=== PATIENT | female | born 1945 | race Caucasian/White ===

== ENCOUNTER → 2016-10-09 | Outpatient (CLI) | payer MEDICARE, MEDICAID ==
[2016-10-09 14:11] LABS: MICRO ALBUMIN RANDOM URINE RAW 6.2 MG/L (0.0-30.0)
[2016-10-09 14:17] LABS: HDL CHOLESTEROL 48.2 MG/DL (40.0-60.0)
[2016-10-09 14:24] LABS: FREE T3 3.35 PG/ML (2.18-3.98); FREE T4 0.64 NG/DL (0.76-1.46)
[2016-10-09 16:41] LABS: HEMOGLOBIN A1a 0.9 %; HEMOGLOBIN A1b 0.8 %; HEMOGLOBIN Ao 85.7 %; HEMOGLOBIN F 1.1 %; HEMOGLOBIN P3 3.5 %
== END ==
LOC: CLAB 13:18
PROVIDERS: ATTEND Otolaryngology
DX: E07.9 Disorder of thyroid, unspecified (principal); E78.5 Hyperlipidemia, unspecified; E11.9 Type 2 diabetes mellitus without complications
CPT/HCPCS: 36415; 80061; 82043; 83036; 84439; 84443; 84481

== ENCOUNTER → 2017-04-16 | Outpatient (CLI) | payer MEDICARE, MEDICAID | LOC: CLAB 11:22 | PROVIDERS: ATTEND Psychiatry & Neurology Neurology | DX: M31.6 Other giant cell arteritis (principal); R79.82 Elevated C-reactive protein (CRP); A53.0 Latent syphilis, unspecified as early or late | CPT/HCPCS: 36415; 85652; 86038; 86140 ==

== ENCOUNTER → 2017-05-29 | Outpatient (CLI) | payer MEDICARE, MEDICAID | LOC: CLAB 12:22 | PROVIDERS: ATTEND Psychiatry & Neurology Neurology | DX: R51 Headache (principal); M31.6 Other giant cell arteritis; R76.9 Abnormal immunological finding in serum, unspecified | CPT/HCPCS: 36415; 85652; 86140 ==

== ENCOUNTER → 2018-01-01 | Outpatient (CLI) | payer MEDICARE, MEDICAID ==
[2018-01-01 12:29] LABS: HEMATOCRIT 38.5 % (35.0-46.0); HEMOGLOBIN 13.2 GM/DL (11.6-15.3); MEAN CORPUSCULAR HEMOGLOBIN 32.9 PG (27.0-34.0); MEAN CORPUSCULAR HGB CONC 34.3 % (32.0-36.0); PLATELET COUNT 233 TH/MM3 (150-450); RED BLOOD COUNT 4.01 MIL/MM3 (4.00-5.30)
[2018-01-01 12:51] LABS: ALBUMIN 3.9 GM/DL (3.4-5.0); AST (GOT) 17 U/L (15-37); BICARBONATE 31.1 MEQ/L (21.0-32.0); BLOOD UREA NITROGEN 14 MG/DL (7-18); CALCIUM 9.8 MG/DL (8.5-10.1); CHLORIDE 110 MEQ/L (98-107); CREATININE 1.36 MG/DL (0.50-1.00); GLOMERULAR FILTRATION RATE 38 ML/MIN (>89); GLUCOSE,FASTING 90 MG/DL (74-99); SODIUM (NA) 145 MEQ/L (136-145)
[2018-01-01 12:52] LABS: ALT (GPT) 22 U/L (10-53); CHOLESTEROL 134 MG/DL (120-200)
[2018-01-01 12:54] LABS: ALKALINE PHOSPHATASE 59 U/L (45-117); CHOLESTEROL/ HDL RATIO 1.85 RATIO; HDL CHOLESTEROL 72.1 MG/DL (40.0-60.0); LDL CHOLESTEROL 41 MG/DL (0-99); TOTAL BILIRUBIN ADULT 0.6 MG/DL (0.2-1.0); TOTAL PROTEIN 6.8 GM/DL (6.4-8.2); TRIGLYCERIDES 104 MG/DL (42-150)
[2018-01-01 12:58] LABS: WESTERGREN SEDIMENTATION RATE 7 mm/hr (0-30)
[2018-01-01 13:02] LABS: FREE T3 3.74 PG/ML (2.18-3.98); FREE T4 0.6 NG/DL (0.76-1.46)
[2018-01-01 15:01] LABS: HEMOGLOBIN A1C 5.6 % (4.3-6.0)
== END ==
LOC: CLAB 11:30
PROVIDERS: ATTEND General Practice
DX: E03.8 Other specified hypothyroidism (principal); M05.9 Rheumatoid arthritis with rheumatoid factor, unspecified
CPT/HCPCS: 36415; 80053; 80061; 82533; 83036; 84439; 84443; 84481; 85027; 85652

== ENCOUNTER → 2018-03-04 | Outpatient (CLI) | payer MEDICARE, MEDICAID | LOC: CLAB 14:42 | PROVIDERS: ATTEND Psychiatry & Neurology Neurology | DX: M31.6 Other giant cell arteritis (principal); M60.9 Myositis, unspecified; M79.7 Fibromyalgia | CPT/HCPCS: 36415; 85652; 86140 ==